=== PATIENT | female | born 1970 | race Caucasian/White ===

== ENCOUNTER 2024-05-07 13:08 | Emergency (ER) | payer OTHER, SELFPAY ==
[2024-05-07 13:13] VITALS: BP 134/89
[2024-05-07 13:17] VITALS: BP 134/89
[2024-05-07 13:40] LABS: % Basophils 0.6 % (0-2); % Eosinophils 3.2 % (0-6); % Immature Granulocytes 0.6 % (0-0.5); % Lymphocytes 23.8 % (20.5-51.1); % Monocytes 5.4 % (1.7-9.3); % Neutrophils 66.4 % (42.2-75.2); Absolute Eosinophils 0.2 10^3/uL (0-0.7); Absolute Lymphocytes 1.2 10^3/uL (1.2-3.4); Absolute Monocytes 0.3 10^3/uL (0.1-0.6); Absolute Neutrophils 3.3 10^3/uL (1.4-6.5); Hematocrit 44.8 % (37.0-47.0); Hemoglobin 14.9 g/dL (12.0-16.0); Mean Corp Hgb Conc. 33.3 g/dL (33.0-37.0); Mean Corpuscular Hgb 28.5 pg (27.0-31.0); Mean Corpuscular Volume 85.7 fL (81.0-99.0); Mean Platelet Volume 9.6 fL (7.4-10.4); Nucleated Red Blood Cells % 0 %; Platelet Count 218 10^3/uL (130-400); Red Blood Cell Count 5.23 10^6/uL (4.20-5.40); Red Cell Dist. Width 12.4 % (11.5-14.5)
[2024-05-07 13:58] LABS: ALT (SGPT) 28 U/L (0-35); AST (SGOT) 35 U/L (14-36); Albumin 5.2 g/dl (3.5-5.0); Alkaline Phosphatase 75 U/L (38-126); Blood Urea Nitrogen 15 mg/dl (7-17); Calcium 9.8 mg/dl (8.4-10.2); Carbon Dioxide 28 mmol/L (22-30); Chloride 97 mmol/L (98-107); Glucose 144 mg/dl (70-99); Potassium 4.8 mmol/L (3.5-5.1); Sodium 136 mmol/L (135-145); Total Bilirubin 0.6 mg/dl (0.2-1.3); Total Protein 7.6 g/dl (6.3-8.2); eGFR > 60.00
[2024-05-07 14:06] LABS: Troponin I < 0.012 ng/ml
--- NOTE | 2024-05-07 14:31 | ED.GENMED ---
History of Present Illness
General
Chief Complaint: Numbness
Time Seen by Provider: 05/07/24 14:31
History of Present Illness
History of Present Illness:
TIME OF INITIAL ENCOUNTER: 2:40 PM
HPI: The patient presents with paresthesias primarily to the right foot and right hand. She is not sure but does not think that she has symptoms on the left side. Several days ago, she had revision of bilateral breast implants related to remote
mastectomies for breast cancer. She has no motor deficits. She has no coordination deficits or speech changes. She was placed on Neurontin and Flexeril and wonders if these could be contributing to her symptoms. She did have some vague
lightheadedness/dizziness earlier in the day.
EXAM:
GENERAL: Well appearing in no distress
HEENT: Moist oral mucosa
CARDIOVASCULAR: No murmurs, normal heart rate, regular rhythm, No chest wall tenderness
PULMONARY: No respiratory distress, breath sounds are clear and equal
ABDOMEN: Soft with no peritoneal signs, no tenderness
NEUROLOGIC: Excellent strength all extremities, no coordination deficits, normal finger-nose testing, excellent sensation in all extremities, no facial motor deficits,
PSYCHIATRIC: Appropriate mental status, normal insight and judgement
EXTREMITIES: Nontender, no edema, moves all extremities equally, excellent left DP pulse with excellent perfusion in all extremities
SKIN: No rash, no lesions
NUMBER AND COMPLEXITY OF PROBLEMS ADDRESSED AT THE ENCOUNTER
� Chronic conditions affecting care: History of mastectomy
� Acute Exacerbation and/or Progression of Chronic Illness: This is an acute problem
� Differential Diagnosis includes: Medication reaction, doubt CVA based on physical examination, intracranial pathology
AMOUNT AND/OR COMPLEXITY OF DATA TO BE REVIEWED AND ANALYZED
� I performed an independent evaluation of and my interpretation is:
EKG: Sinus 78, normal axis, nonspecific ST abnormality
CT: CAT scan of the brain shows no acute abnormality
X-rays:
Laboratory Studies: CBC and chemistries unremarkable
Other:
� Review of other/old records: The patient was seen in the emergency department 1.5 years ago related to left leg pain
� Clinical information was obtained by an independent historian: I spoke to the at bedside
� Prescriptions/Medications Considered but not given:
� Further testing considered but not performed:
RISK OF COMPLICATIONS AND/OR MORBIDITY OR MORTALITY OF PATIENT MANAGEMENT
� Social determinants of health affecting care: Lives at home
� Discussion with other providers: I notified Dr. Alamo of patient's presentation and workup.
� Escalation of care including admission/observation vs risk of discharge considered: The patient has a normal neurologic examination with NIHSS equals 0. Her GCS is 15. Her perfusion is excellent. There are no abnormal motor
findings on exam. Extremely low suspicion for CVA. Although her symptoms are unilateral, we talked about the possibly of medication related symptoms as her symptoms did not start until after the surgery when she was started on medications.
ANY OTHER UPDATES:
Past History
Past History
ED Past Medical History: Cancer (Breast)
ED Past Surgical History: Other (Mastectomy)
Social History
Tobacco: Non-smoker
Alcohol: None
Drug: None
Personal:
Living: with family
Phy Exam
Physical Exam
Physical Exam:
See HPI
Course
Orders/Labs/Results
Orders:
Orders
05/07/24 13:26
CT Head W/o Iv Contrast Urgent
Comment:
Reason For Exam: numbness
05/07/24 13:27
ECG [Electrocardiogram (*1)] Urgent
Reason for Study: Vertigo / Dizzy
EKG- Treatment ONCE
05/07/24 13:32
CMP [Comprehensive Metabolic Panel] Urgent
Complete Blood Count/With Diff Urgent
Troponin I Urgent
Abnormal Lab Results
05/07/24
13:32
Immature Gran % 0.6 H %
(0-0.5)
Chloride 97 L mmol/L
(98-107)
Glucose 144 H mg/dl
(70-99)
Albumin 5.2 H g/dl
(3.5-5.0)
05/07/24 13:32
05/07/24 13:32
Vital Signs
Initial and Last Documented VS:
Initial Vital Signs
Temp Pulse Resp BP Pulse Ox
36.4 C 109 20 134/89 98
05/07/24 13:13 05/07/24 13:13 05/07/24 13:13 05/07/24 13:13 05/07/24 13:13
Last Documented Vital Signs
Temp Pulse Resp BP Pulse Ox
36.8 C 101 16 116/92 98
05/07/24 13:17 05/07/24 14:40 05/07/24 14:40 05/07/24 14:40 05/07/24 14:40
*Critical Care Note
Total Time (30-74mins, 75-104mins- exclusive of procedures): Not Applicable
ED Attending Note
-
Portions of this chart may have been created with voice recognition software.� Occasional wrong word or��sound alike� substitutions may have occurred due to the inherent limitations of voice recognition software.
Discharge Plan
Departure
Patient Disposition: Home (Routine Discharge)
Date of Disposition: 05/07/24
Time of Disposition: 15:04
Patient with high blood pressure during this ER visit?: Yes
Discharge Problem:
Paresthesia
Instructions: Paresthesia (DC), BLOOD PRESSURE
Prescriptions:
No Action
clindamycin HCl 300 MG capsule
300 mg PO QID Qty: 28 0RF
Referrals:
Idania Alamo MD [Family Provider] -
Activity Restrictions/Additional Instructions:
The cause of your symptoms is unclear. Basic blood work is normal. Glucose was slightly high at 144 however this was not a fasting test. EKG is unremarkable and brain CT is normal. I notified Dr. Alamo. Return here if worse or other
concerns.
Interventions
Interventions:
*General Assessment Last Done: 05/07/24 13:17
*Neglect/Abuse Screening Last Done: 05/07/24 14:42
ED- Fall Risk Assessment Last Done: 05/07/24 14:44
*ED COVID-19 Vaccine History Last Done: 05/07/24 14:42
ED- Neurological Assessment Last Done: 05/07/24 14:42
Discharge Date and Time
Print Language: IRANIAN
[2024-05-07 14:39] VITALS: BP 116/92
[2024-05-07 14:40] VITALS: BP 116/92
[2024-05-07 15:00] VITALS: BP 109/81
== END 2024-05-07 15:12 | disposition home or self-care (01) ==
LOC: EMR 13:08
PROVIDERS: Emergency Medicine; EMERGENCY PHYSICIAN Emergency Medicine; FAMILY PHYSICIAN Internal Medicine
DX: R20.2 Paresthesia of skin (principal); Z85.3 Personal history of malignant neoplasm of breast; Z90.13 Acquired absence of bilateral breasts and nipples
CPT/HCPCS: 99284; 70450; 80053; 84484; 85025; 93005

== ENCOUNTER → 2024-09-22 06:42 | Outpatient (REF) | payer OTHER, SELFPAY | LOC: HWRAD 06:42 | PROVIDERS: ATTENDING PHYSICIAN Internal Medicine | DX: M79.604 Pain in right leg (principal); Z85.3 Personal history of malignant neoplasm of breast | CPT/HCPCS: 76882 ==

== ENCOUNTER 2024-09-23 19:43 | Emergency (ER) | payer OTHER, SELFPAY ==
[2024-09-23 19:48] VITALS: BP 157/92
[2024-09-23 19:58] VITALS: BMI 23.1
[2024-09-23 20:11] LABS: % Basophils 0.6 % (0-2); % Eosinophils 2.8 % (0-6); % Immature Granulocytes 0.2 % (0-0.5); % Monocytes 7.5 % (1.7-9.3); % Neutrophils 54.9 % (42.2-75.2); Absolute Eosinophils 0.2 10^3/uL (0-0.7); Absolute Lymphocytes 1.8 10^3/uL (1.2-3.4); Absolute Monocytes 0.4 10^3/uL (0.1-0.6); Absolute Neutrophils 2.9 10^3/uL (1.4-6.5); Hematocrit 38.9 % (37.0-47.0); Hemoglobin 13.4 g/dL (12.0-16.0); Mean Corp Hgb Conc. 34.4 g/dL (33.0-37.0); Mean Corpuscular Hgb 29.3 pg (27.0-31.0); Mean Corpuscular Volume 85.1 fL (81.0-99.0); Mean Platelet Volume 10.5 fL (7.4-10.4); Nucleated Red Blood Cells % 0 %; Platelet Count 205 10^3/uL (130-400); Red Blood Cell Count 4.57 10^6/uL (4.20-5.40); Red Cell Dist. Width 12.4 % (11.5-14.5); White Blood Cell Count 5.3 10^3/uL (4.8-10.8)
[2024-09-23 20:20] VITALS: BP 122/78
[2024-09-23 20:30] LABS: HCG, Serum Qualitative Screen Negative
[2024-09-23 20:38] LABS: Troponin I < 0.012 ng/ml
[2024-09-23 20:40] LABS: ALT (SGPT) 17 U/L (0-35); AST (SGOT) 23 U/L (14-36); Albumin 4.8 g/dl (3.5-5.0); Alkaline Phosphatase 61 U/L (38-126); Blood Urea Nitrogen 14 mg/dl (7-17); Calcium 9.3 mg/dl (8.4-10.2); Carbon Dioxide 25 mmol/L (22-30); Chloride 108 mmol/L (98-107); Estimated Creatinine Clearance 90 ml/min; Glucose 140 mg/dl (70-99); Sodium 140 mmol/L (135-145); Total Bilirubin 0.4 mg/dl (0.2-1.3); Total Protein 6.9 g/dl (6.3-8.2); eGFR > 60.00
[2024-09-23 21:00] VITALS: BP 113/66
[2024-09-23] MEDS: CARAFATE SUSPENSION 1 GM PO (21:32)
[2024-09-23 21:34] LABS: Lipase 130 U/L (23-300)
--- NOTE | 2024-09-23 22:39 | ED.GENMED ---
History of Present Illness
<Jimmy Olson DO - Last Filed: 09/23/24 22:45>
General
Chief Complaint: Chest Pain
Source: patient and spouse
Time Seen by Provider: 09/23/24 20:02
History of Present Illness
History of Present Illness:
Note:
CHIEF COMPLAINT(S)
Chest and back pain.
HISTORY OF PRESENT ILLNESS
The patient is a 54-year-old female with a history of breast cancer, presenting with the onset of pain in the middle of her back and across her chest after eating steak during dinner. The pain started suddenly and intensified upon breathing. She
describes it as a tightening sensation, which she had never experienced before and considers concerning. The pain is currently slightly better than at onset but worsens upon exhalation. She has no history of shortness of breath, hypertension,
diabetes, elevated cholesterol, or heart problems. She recently had an ultrasound due to swelling and a nodule near the breast area but has not yet received the results.
ADDITIONAL HISTORY OBTAINED FROM SOURCES OTHER THAN THE PATIENT
According to medical notes and interactions, the patients initial EKG was normal, and the initial heart enzyme tests were negative.
CHRONIC MEDICAL CONDITIONS SIGNIFICANTLY AFFECTING CARE
Chronic conditions affecting care: History of breast cancer treated successfully in the past.
PHYSICAL EXAM
Nursing notes reviewed and vital signs reviewed.
-
CONSTITUTIONAL Patient alert and oriented to person, place and time. Well-appearing. Vital signs reviewed.
HEAD atraumatic, normocephalic.
EYES eyelids normal to inspection, Extraocular muscles intact, Conjunctiva normal, Sclera normal.
NECK normal range of motion, Trachea midline, no jugular venous distention.
RESPIRATORY CHEST No respiratory distress noted, Chest expansion equal, Bilateral breath sounds clear.
CARDIOVASCULAR regular rate and rhythm, Heart sounds normal.
ABDOMEN abdomen nontender, Bowel sounds normal. No distention.
BACK normal inspection, no obvious deformities
UPPER EXTREMITY range of motion normal, Motor strength normal, no cyanosis, no edema.
LOWER EXTREMITY range of motion normal, Motor strength normal, no cyanosis, no edema. Negative Homans. No palpable cords
NEURO Speech normal, No focal motor deficits, [place] coma scale 15, Memory normal, Cranial Nerves intact to screening exam.
SKIN skin warm, dry, and normal in color.
PLAN
- Repeating troponin levels in approximately one hour to ensure no delayed myocardial enzyme elevation.
- Perform an ultrasound of the gallbladder to rule out any biliary pathology.
- Complete a plain chest X-ray to exclude lung collapse, air in the diaphragm, or aortic aneurysm.
- Consider trial with Maalox or Carafate for symptomatic relief of any potential gastrointestinal discomfort.
- Heel Layer the patient regarding signs and symptoms to monitor, facilitating early detection of a possible pulmonary embolism.
- Assess D-dimer levels only if there are concerning symptoms given the low clinical suspicion of pulmonary embolism.
DIFFERENTIAL DIAGNOSIS
The Differential Diagnosis includes, in no particular order and is not limited to:
- Myocardial infarction
- Gastroesophageal reflux disease (GERD)
- Gallbladder disease (cholecystitis or biliary colic)
- Esophageal spasm or other motility disorders
- Pulmonary embolism
- Aortic dissection
- Costochondritis
- Pneumothorax
- Peptic ulcer disease
- Anxiety-related pain.
EKG
My independent EKG interpretation is:
- Rhythm: Normal sinus rhythm
- Heart rate: 100 bpm
- Intervals: Normal
- [place]: Normal
- Abnormalities: No acute ischemic changes
CARE-UPDATE
09/23/24 - 22:38
Recent ultrasound review from September 22, 2024, shows normal findings; DVT was not assessed in this evaluation.
Disposition:
SUMMARY OF ENCOUNTER
The patient, a 54-year-old female, presented with chest pain after eating, but appears overall well. Initial troponin EKG so far normal no tachypnea or tachycardia to suggest pulmonary embolism. Blood pressure controlled and no clinical concern
for aortic dissection mediastinum narrow on chest x-ray. Await repeat troponin and ultrasound results. Case signed out to Dr. Robison pending results
INDEPENDENT REVIEW OF LABS AND INTERPRETATION OF TESTS
My independent review of the EKG is normal sinus rhythm with no acute ischemic changes. Initial heart enzyme tests show negative troponin.
My independent review of the chest x-ray shows normal cardiac silhouette and no pneumothorax
ADDITIONAL TESTING AND IMAGING CONSIDERED
An ultrasound of the gallbladder and a chest X-ray were considered for potential biliary or lung issues.
MEDICAL DECISION MAKING
1. Number & Complexity of Problems: Chronic conditions affecting care: History of breast cancer.
2. Data Reviewed: Category 1 includes EKG and initial troponin.
3. Risk: Consideration of admission/observation was made due to chest pain, but outpatient management was deemed appropriate based on reassuring work-up and stable vitals.
PATHOLOGIES TO CONSIDER
- Myocardial infarction
- Pulmonary embolism
- Aortic dissection
- Gallbladder disease or esophageal spasm.
Past History
<Jimmy Olson, DO - Last Filed: 09/23/24 22:45>
Past History
ED Past Medical History: Cancer (Breast)
ED Past Surgical History: Other (Mastectomy)
Social History
Tobacco: Non-smoker
Alcohol: None
Drug: None
Personal:
Living: with family
Phy Exam
<Jimmy Olson, DO - Last Filed: 09/23/24 22:45>
Physical Exam
Physical Exam:
.
Scores
<Del Robison, DO - Last Filed: 09/23/24 23:49>
Heart Score for Chest Pain Patients
STEMI patient?: No
History: Slightly or Non-Suspicious
ECG: Normal
Age: >45 - <65 years
Risk Factors: 1 or 2 Risk Factors
Troponin: </= Normal Limit
Heart Score for Chest Pain Patients: 2
Heart Score Risk: 2.5% MACE over next 6 weeks
Course
<Jimmy Olson, DO - Last Filed: 09/23/24 22:45>
Orders/Labs/Results
Orders:
Orders
09/23/24 19:44
ECG [Electrocardiogram (*1)] Urgent
Reason for Study: Chest Pain
EKG- Treatment ONCE
09/23/24 19:55
Test Result ONCE
09/23/24 20:04
Complete Blood Count/With Diff Urgent
Comprehensive Metabolic Panel Urgent
HCG, Serum Qualitative Screen Urgent
Lipase Urgent
Comment: ADD ON
Troponin I Urgent
09/23/24 20:59
US Abdomen Complete/Upper Urgent
Comment:
Reason For Exam: upper abd/lower cp after eating
09/23/24 21:00
CR Chest - 2 Views Urgent
Comment:
Reason For Exam: cp
09/23/24 21:01
Add On- LAB Urgent
Tests Added?: Lipase
09/23/24 21:02
EKG- Treatment ONCE
09/23/24 21:23
Sucralfate Suspension [Carafate Suspension] 1 gm PO NOW STA
09/23/24 22:48
Ketorolac [Toradol] 15 mg IV NOW STA
09/23/24 22:58
Troponin I Urgent
09/23/24 23:00
EKG [Electrocardiogram (*1)] Urgent
Reason for Study: Chest Pain
Abnormal Lab Results
09/23/24
20:04
MPV 10.5 H fL
(7.4-10.4)
Chloride 108 H mmol/L
(98-107)
Glucose 140 H mg/dl
(70-99)
09/23/24 20:04
09/23/24 20:04
Vital Signs
Initial and Last Documented VS:
Initial Vital Signs
Temp Pulse Resp BP Pulse Ox
98.2 F 115 24 157/92 98
09/23/24 19:48 09/23/24 19:48 09/23/24 19:48 09/23/24 19:48 09/23/24 19:48
Last Documented Vital Signs
Temp Pulse Resp BP Pulse Ox
98.2 F 77 18 113/66 97
09/23/24 19:48 09/23/24 22:03 09/23/24 22:03 09/23/24 21:00 09/23/24 22:39
<Del Robison, DO - Last Filed: 09/23/24 23:49>
Orders/Labs/Results
Orders:
Orders
09/23/24 19:44
ECG [Electrocardiogram (*1)] Urgent
Reason for Study: Chest Pain
EKG- Treatment ONCE
09/23/24 19:55
Test Result ONCE
09/23/24 20:04
Complete Blood Count/With Diff Urgent
Comprehensive Metabolic Panel Urgent
HCG, Serum Qualitative Screen Urgent
Lipase Urgent
Comment: ADD ON
Troponin I Urgent
09/23/24 20:59
US Abdomen Complete/Upper Urgent
Comment:
Reason For Exam: upper abd/lower cp after eating
09/23/24 21:00
CR Chest - 2 Views Urgent
Comment:
Reason For Exam: cp
09/23/24 21:01
Add On- LAB Urgent
Tests Added?: Lipase
09/23/24 21:02
EKG- Treatment ONCE
09/23/24 21:23
Sucralfate Suspension [Carafate Suspension] 1 gm PO NOW STA
09/23/24 22:48
Ketorolac [Toradol] 15 mg IV NOW STA
09/23/24 22:58
Troponin I Urgent
09/23/24 23:00
EKG [Electrocardiogram (*1)] Urgent
Reason for Study: Chest Pain
Abnormal Lab Results
09/23/24
20:04
MPV 10.5 H fL
(7.4-10.4)
Chloride 108 H mmol/L
(98-107)
Glucose 140 H mg/dl
(70-99)
09/23/24 20:04
09/23/24 20:04
Vital Signs
Initial and Last Documented VS:
Initial Vital Signs
Temp Pulse Resp BP Pulse Ox
98.2 F 115 24 157/92 98
09/23/24 19:48 09/23/24 19:48 09/23/24 19:48 09/23/24 19:48 09/23/24 19:48
Last Documented Vital Signs
Temp Pulse Resp BP Pulse Ox
98.2 F 77 18 113/66 97
09/23/24 19:48 09/23/24 22:03 09/23/24 22:03 09/23/24 21:00 09/23/24 22:39
<Jimmy Olson DO - Last Filed: 09/23/24 22:45>
*Pulse Oximetry
SaO2: 97
Oxygen Mode of Delivery: Room air
Patient hypoxic: no
*Geographic Information Systems Engineer Interpretation
Rate: normal
Interpretation: normal
Rhythm: sinus
*Critical Care Note
Total Time (30-74mins, 75-104mins- exclusive of procedures): Not Applicable
Data Reviewed
Source: patient and spouse
<Del Robison DO - Last Filed: 09/23/24 23:49>
Update Note
Update Note:
Repeat EKG shows normal sinus rhythm rate of 79 with normal intervals, normal axis. No evidence of acute ischemia present. Compared with previous EKG there is no obvious interval change noted.
NAME: LAUREN HARP
DATE OF EXAM: 09/23/2024
Patient No: [id number]
Physician: BRANDY^Kuldip.
Date of : 1970
Past Medical History (entered by Technologist):
Reason For Exam (entered by Technologist): UPPER ABD AND CP AFTER EATING
Other Notes (entered by Technologist): PT ATE A FEW HOURS PRIOR TO STUDY
Additional Information (per [facility] Radiologist):
Ultrasound abdomen
IMPRESSION:
Contracted otherwise normal gallbladder. No sludge or gallstones. Negative Martinez sign.
No biliary ductal dilatation.
Visualized liver, pancreas, spleen, and bilateral kidneys without gross abnormality.
No free fluid.
The results were faxed/finalized only at 10:46 PM ET. If you would like to discuss this case directly, please call [phone] (extension [phone]). If you can't reach me at this number, do not leave a voicemail. Please call [phone] ext [phone] and
ask for the next available Radiologist.
Rajinder Puri MD
This report has been electronically signed and verified by the Radiologist whose name is printed above.
Discussed lab work with patient. She has no further questions at this time. She will follow-up. Discussed return to ER instructions.
ED Attending Note
<Jimmy Olson, - Last Filed: 09/23/24 22:45>
-
Portions of this chart may have been created with voice recognition software.� Occasional wrong word or��sound alike� substitutions may have occurred due to the inherent limitations of voice recognition software.
Discharge Plan
Departure
Patient Disposition: Home (Routine Discharge)
Date of Disposition: 09/23/24
Time of Disposition: 23:46
Patient with high blood pressure during this ER visit?: No
Discharge Problem:
Chest pain
Instructions: Chest Pain PCP Follow Up
Prescriptions:
No Action
clindamycin HCl 300 MG capsule
300 mg PO QID Qty: 28 0RF
Referrals:
Idania Alamo MD [Family Provider, Internal Medicine]
Activity Restrictions/Additional Instructions:
Please see your doctor in the next 2 to 3 days for follow-up and reevaluation. Return if your shortness of breath, worsening pain, pain, vomiting or any other concerns.
Interventions
Interventions:
*Risk Screen - Suicide Last Done: 09/23/24 19:48
*General Assessment Last Done: 09/23/24 19:48
*Neglect/Abuse Screening Last Done: 09/23/24 19:48
*ED- Fall Risk Assessment Last Done: 09/23/24 20:09
*ED COVID-19 Vaccine History Last Done: 09/23/24 20:09
ED- Cardiac Assessment Last Done: 09/23/24 20:08
Discharge Date and Time
Print Language: MACEDONIAN
[2024-09-23] MEDS: TORADOL 15 MG IV (22:57)
[2024-09-23 23:40] LABS: Troponin I < 0.012 ng/ml
[2024-09-24 00:14] VITALS: BP 118/68
== END 2024-09-24 00:15 | disposition home or self-care (01) ==
LOC: EMR 19:43
PROVIDERS: EMERGENCY PHYSICIAN Emergency Medicine; FAMILY PHYSICIAN Internal Medicine
DX: R07.89 Other chest pain (principal); Z85.3 Personal history of malignant neoplasm of breast
CPT/HCPCS: 99285; 96374; 71046; 76700; 80053; 83690; 84484; 84703; 85025; 93005

== ENCOUNTER 2024-10-25 09:14 | Emergency (ER) | payer SELFPAY ==
[2024-10-25 09:16] VITALS: BP 132/79
[2024-10-25 09:24] VITALS: BMI 21.6
--- NOTE | 2024-10-25 09:45 | EDRN ---
Edison Simms PA in to see ptParadise
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
[2024-10-25] MEDS: MOTRIN 600 MG PO (09:58)
--- NOTE | 2024-10-25 10:35 | EDRN ---
Edison Norton PA in to see pt.
[2024-10-25 10:39] VITALS: BP 106/70
== END 2024-10-25 10:45 | disposition home or self-care (01) ==
LOC: EMR 09:14
PROVIDERS: EMERGENCY PHYSICIAN Emergency Medicine; FAMILY PHYSICIAN Internal Medicine
DX: M25.532 Pain in left wrist (principal); M25.512 Pain in left shoulder; S40.212A Abrasion of left shoulder, initial encounter; V49.40XA Driver injured in collision with unspecified motor vehicles in traffic accident, initial encounter; W22.10XA Striking against or struck by unspecified automobile airbag, initial encounter; Y92.410 Unspecified street and highway as the place of occurrence of the external cause; Z85.3 Personal history of malignant neoplasm of breast
CPT/HCPCS: 99283; 73030; 73110

== ENCOUNTER 2025-02-16 06:37 | Outpatient (RCR) | payer OTHER, SELFPAY | END 2025-02-16 23:59 | disposition home or self-care (01) | LOC: RPT 06:37 | PROVIDERS: ATTENDING PHYSICIAN Internal Medicine | DX: N94.10 Unspecified dyspareunia (principal); M62.89 Other specified disorders of muscle; Z73.6 Limitation of activities due to disability; Z85.3 Personal history of malignant neoplasm of breast; Z90.13 Acquired absence of bilateral breasts and nipples | CPT/HCPCS: 97163; 97530 ==

== ENCOUNTER → 2025-02-16 18:23 | Outpatient (REF) | payer OTHER, SELFPAY | LOC: MRI 18:23 | PROVIDERS: ATTENDING PHYSICIAN Internal Medicine | DX: R51.9 Headache, unspecified (principal); Z85.3 Personal history of malignant neoplasm of breast | CPT/HCPCS: 70553; A9575 ==

== ENCOUNTER 2025-04-02 07:43 | Outpatient (RCR) | payer OTHER, SELFPAY | END 2025-04-02 23:59 | disposition home or self-care (01) | LOC: RPT 07:43 | PROVIDERS: ATTENDING PHYSICIAN Internal Medicine | DX: N94.10 Unspecified dyspareunia (principal); M62.89 Other specified disorders of muscle; Z73.6 Limitation of activities due to disability; Z85.3 Personal history of malignant neoplasm of breast; Z90.13 Acquired absence of bilateral breasts and nipples | CPT/HCPCS: 97110; 97112; 97140; 97530 ==